=== PATIENT | female | born 1985 | race Caucasian/White ===

== ENCOUNTER 2018-08-18 00:06 | Emergency (ER) | payer OTHER ==
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
[2018-08-18] MEDS ORDERED: ACETAMINOPHEN 500 MG TAB PO ONE (00:35)
[2018-08-18] MEDS ORDERED: IBUPROFEN 800 MG TAB PO ONE (00:35)
[2018-08-18 02:52] VITALS: BP 114/74
== END 2018-08-18 02:49 | disposition home or self-care (01) ==
DX: S16.1XXA Strain of muscle, fascia and tendon at neck level, initial encounter (principal); V49.49XA Driver injured in collision with other motor vehicles in traffic accident, initial encounter; Y99.0 Civilian activity done for income or pay